=== PATIENT | female | born 1940 | race Caucasian/White ===

== ENCOUNTER 2017-04-26 08:59 | Emergency (ER) | payer MEDICARE ==
--- NOTE | 2017-04-26 09:01 | ER Report ---
History and Physical Time Seen By MD: 09:00 HPI/ROS CC: Right leg pain with loss of bowel HPI: 77-year-old female presents to the emergency Department with loss of bowel 3 days ago. She states that she was incontinent with stool while sitting there. She states that she was unable to control her bowel movements. That has slowly resolved. She states that 2 and half months ago she started having right leg pain basically in the S1 distribution of the bottom of right foot. It is electrical in nature. She states is worse with standing. She has tolerated it over the last couple months but due to recent incontinence of stool. He then came into the emergency department. She is rating the pain in the right leg as 7 -8 out of 10 electrical in nature is periodic. Somewhat better with rest. ROS: 12 point review of systems essentially negative other than what's mentioned in history of present illness. NURSES AND OLD MEDICAL RECORDS: Reviewed PMH: Reviewed SURGICAL HX: Reviewed FAMILY HX: Noncontributory SOCIAL HX: She denies smoking alcohol or illicit drugs. She was a home. VITAL SIGNS: Reviewed CONSTITUTIONAL: 77-year-old female in moderate distress PHYSICAL EXAM: HEENT: Pupils equal round reactive to light and accommodate, EOMI, tympanic membranes pearly white umbo present with good light reflex. Lips dry mucous membranes moist gums nonbleeding uvula midline and rises equally with phonation, oropharynx noninjected, teeth intact. NECK: Neck supple, thyroid not appreciated, anterior and posterior cervical lymphadenopathy not appreciated. Trachea midline and rises equally with phonation. CARDIAC: S1-S2 regular rate rhythm no murmurs rubs or gallops. LUNGS: Lungs clear bilaterally posteriorly in all contreras. Good air movement. ABDOMEN: Abdomen soft, nondistended, bowel sounds active in all 4 quadrants, no bruits noted, no CVA tenderness. RECTAL: Decreased tone of internal and external sphincters. No hemorrhoids noted. No fissures noted. MUSCULOSKELETAL: Strength 5 out of 5 x 4 extremities, no deformities noted. NEUROLOGIC: Patient alert and oriented by 3. Bilateral patellar and Achilles DTRs are 2+. Numbness on the bottom of the right foot. Allergies: Coded Allergies: codeine (Verified Allergy, Mild, WEIRD EXPERIENCE, 04/26/17) tramadol (Verified Allergy, Unknown, 04/26/17) Home Meds Reported Medications Hydrocodone Bit/Acetaminophen (HYDROCODON-ACETAMINOPHEN 5-325) 1 Each Tablet 04/26/17 Ciprofloxacin Hcl (CIPROFLOXACIN HCL) 250 Mg Tablet 04/26/17 Lamotrigine (LAMOTRIGINE) 200 Mg Tablet 04/26/17 Clonazepam (CLONAZEPAM) 1 Mg Tablet 04/26/17 Hydrochlorothiazide (HYDROCHLOROTHIAZIDE) 12.5 Mg Capsule 04/26/17 Lisinopril (LISINOPRIL) 10 Mg Tablet 04/26/17 Constitutional Vital Sign - Last 24 Hours 04/26/17 04/26/17 04/26/17 04/26/17 09:06 09:11 09:30 09:59 Temp 97.9 Pulse 83 91 Resp 16 B/P (MAP) 144/76 144/76 (98) 131/69 (89) Pulse Ox 93 95 O2 Delivery Room Air 04/26/17 10:00 B/P (MAP) 167/78 (107) Medical Decision Making Data Points Result Diagram: 04/26/17 1020 04/26/17 1020 Laboratory Hematology Test 04/26/17 10:20 Red Blood Count 5.68 M/uL (4.17-5.56) Mean Corpuscular Volume 86.8 fL (80.0-96.0) Mean Corpuscular Hemoglobin 28.8 pg (26.0-33.0) Mean Corpuscular Hemoglobin Concent 33.2 g/dL (32.0-36.0) Red Cell Distribution Width 14.0 % (11.5-14.5) Mean Platelet Volume 7.4 fL (7.2-11.1) Neutrophils (%) (Auto) 63.3 % (39.4-72.5) Lymphocytes (%) (Auto) 24.2 % (17.6-49.6) Monocytes (%) (Auto) 8.9 % (4.1-12.4) Eosinophils (%) (Auto) 3.1 % (0.4-6.7) Basophils (%) (Auto) 0.5 % (0.3-1.4) Nucleated RBC Relative Count (auto) 0.0 /100WBC Neutrophils # (Auto) 6.4 K/uL (2.0-7.4) Lymphocytes # (Auto) 2.5 K/uL (1.3-3.6) Monocytes # (Auto) 0.9 K/uL (0.3-1.0) Eosinophils # (Auto) 0.3 K/uL (0.0-0.5) Basophils # (Auto) 0.1 K/uL (0.0-0.1) Nucleated RBC Absolute Count (auto) 0.00 K/uL Peripheral Blood Smear No Y/N Prothrombin Time 12.7 seconds (12.0-14.4) Prothromb Time International Ratio 0.96 Activated Partial Thromboplast Time 23 seconds (23-35) Sodium Level 140 mmol/L (137-145) Potassium Level 3.7 mmol/L (3.5-5.0) Chloride Level 100 mmol/L (98-107) Carbon Dioxide Level 29 mmol/L (22-31) Blood Urea Nitrogen 20 mg/dl (7-18) Creatinine 1.10 mg/dl (0.52-1.04) Glomerular Filtration Rate Calc 48.0 Random Glucose 96 mg/dl (75-110) Calcium Level 9.7 mg/dl (8.4-10.2) Total Bilirubin 0.7 mg/dl (0.2-1.3) Aspartate Amino Transf (AST/SGOT) 22 U/L (0-35) Alanine Aminotransferase (ALT/SGPT) 32 U/L (0-56) Alkaline Phosphatase 75 U/L (0-126) Total Protein 7.4 gm/dl (6.3-8.2) Albumin 4.3 g/dl (3.5-5.0) Chemistry Test 04/26/17 10:20 White Blood Count 10.2 k/uL (4.5-11.0) Red Blood Count 5.68 M/uL (4.17-5.56) Hemoglobin 16.4 g/dL (12.0-16.0) Hematocrit 49.3 % (34.0-47.0) Mean Corpuscular Volume 86.8 fL (80.0-96.0) Mean Corpuscular Hemoglobin 28.8 pg (26.0-33.0) Mean Corpuscular Hemoglobin Concent 33.2 g/dL (32.0-36.0) Red Cell Distribution Width 14.0 % (11.5-14.5) Platelet Count 281 K/uL (150-450) Mean Platelet Volume 7.4 fL (7.2-11.1) Neutrophils (%) (Auto) 63.3 % (39.4-72.5) Lymphocytes (%) (Auto) 24.2 % (17.6-49.6) Monocytes (%) (Auto) 8.9 % (4.1-12.4) Eosinophils (%) (Auto) 3.1 % (0.4-6.7) Basophils (%) (Auto) 0.5 % (0.3-1.4) Nucleated RBC Relative Count (auto) 0.0 /100WBC Neutrophils # (Auto) 6.4 K/uL (2.0-7.4) Lymphocytes # (Auto) 2.5 K/uL (1.3-3.6) Monocytes # (Auto) 0.9 K/uL (0.3-1.0) Eosinophils # (Auto) 0.3 K/uL (0.0-0.5) Basophils # (Auto) 0.1 K/uL (0.0-0.1) Nucleated RBC Absolute Count (auto) 0.00 K/uL Peripheral Blood Smear No Y/N Prothrombin Time 12.7 seconds (12.0-14.4) Prothromb Time International Ratio 0.96 Activated Partial Thromboplast Time 23 seconds (23-35) Glomerular Filtration Rate Calc 48.0 Calcium Level 9.7 mg/dl (8.4-10.2) Total Bilirubin 0.7 mg/dl (0.2-1.3) Aspartate Amino Transf (AST/SGOT) 22 U/L (0-35) Alanine Aminotransferase (ALT/SGPT) 32 U/L (0-56) Alkaline Phosphatase 75 U/L (0-126) Total Protein 7.4 gm/dl (6.3-8.2) Albumin 4.3 g/dl (3.5-5.0) Coagulation Test 04/26/17 10:20 Prothrombin Time 12.7 seconds Prothromb Time International Ratio 0.96 Activated Partial Thromboplast Time 23 seconds EKG/Imaging Imaging MRI of the lumbar spine reveals: IMPRESSION: 1. Severe narrowing of the upper left L5 lateral recess may be affecting the transiting left L5 nerve. 2. Severe narrowing of the upper right S1 lateral recess may be affecting the transiting right S1 nerve. 3. Moderate L4-5 central stenosis and severe bilateral L4-5 foraminal stenosis. The latter could be affecting both exiting L4 nerves. 4. Additional degenerative changes are defined above without additional levels of moderate or high-grade stenotic disease. Report Dictated By: Frank Butts MD at 04/26/2017 11:06 AM ED Course/Re-evaluation ED Course I discussed the case with Dr. Carson, neurosurgeon at [facility]. This was initially previous to the MRI. He is now in surgery. I then called the hospitalist and Dr. Dale, the hospitalist. He accepts patient the patient will be transferred for cauda equina syndrome. Re-evaluation Medical decision making includes cauda equina syndrome, lumbar radiculopathy. Patient does have cauda equina syndrome. Decision to Disposition Date: Apr 26, 2017 Decision to Disposition Time: 12:33 Depart Departure Latest Vital Signs Vital Signs Date Time Temp Pulse Resp B/P (MAP) Pulse Ox O2 Delivery O2 Flow Rate FiO2 04/26/17 10:00 167/78 (107) 04/26/17 09:59 91 95 04/26/17 09:06 97.9 16 Room Air Impression: Primary Impression: Cauda equina syndrome Condition: Condition Unchanged Disposition: XFER TO [facility] Referrals: SUSAN PAGE (PCP) ORIANA MATTSON MD Apr 26, 2017 09:01
[2017-04-26] MEDS ORDERED: LAMO200T45 (09:15)
[2017-04-26] MEDS ORDERED: CLON-303 (09:15)
[2017-04-26] MEDS ORDERED: HYDR-385 (09:15)
[2017-04-26] MEDS ORDERED: LISI-362 (09:15)
[2017-04-26] MEDS ORDERED: CIPR-215 (09:15)
[2017-04-26] MEDS ORDERED: HYDR12.556 (09:15)
[2017-04-26] MEDS ORDERED: LORazepam 2 MG/ML VIAL IVP ONE (10:15)
[2017-04-26 10:35] LABS: PLATELET COUNT, AUTOMATED 281 K/uL (150-450)
[2017-04-26 10:41] LABS: INR 0.96
--- NOTE | 2017-04-26 11:20 | RADIOLOGY IMAGING REPORT ---
[place] [facility] [place] NAME: Betsy Jaquez : 1940 MR: [id number] V: [id number] EXAM DATE: ORDERING PHYSICIAN: ORIANA MATTSON TECHNOLOGIST: Location: [facility] [place] Patient: Betsy Jaquez : 1940 Visit/Account:[id number] Date of Sevice: 04/26/2017 L SPINE W/O CONTRAST Provided history: possible cauda equina syndrome Additional pertinent history: Low back pain and paresthesias in both legs. Loss of bowel control. TECHNIQUE: Multiplanar multisequence lumbar MRI was performed without intravenous contrast. COMPARISON STUDIES: none FINDINGS: Segment numbering: Lumbosacral junction at L5-S1. No transitional segment. Extra-spinal soft tissues: The far left sagittal image demonstrates a water intensity cyst just over 2 cm in size, not included on the axial series, probably arising from the left kidney. Alignment: There is almost 10 mm degenerative anterolisthesis of L4 on L5. Alignment otherwise normal . Osseous signal pattern: There is a mild old anterior wedge deformity at T12 with 35% loss of height. Distal thoracic cord / conus / cauda equina: negative Disc Spaces: Lower T spine: Mild degeneration of the lower 2 thoracic discs with broad-based disc bulges. No herni ation or significant stenosis. L1-L2: Preserved disk height with abnormal low T2 signal indicating degeneration.. Moderate symmet alejandro bulging disk without significant osteophyte formation and without significant central stenosis No significant foraminal stenosis. L2-L3: .Moderate-severe narrowing and degeneration of the disc. Moderate symmetric bulging disk without significant osteophyte formation and without significant central stenosis. Lateralization of end-plate spurs and bilateral facet hypertrophy results in mild narrowing of both f oramina. L3-L4: Preserved disk height with abnormal low T2 signal indicating degeneration. Moderate symmet alejandro bulging disk without significant osteophyte formation and without significant central stenosis. T he canal is lower limits normal at this level. Lateralization of end-plate spurs and bilateral facet hypertrophy results in mild narrowing of the fo ramina. L4-L5: The disk reveals moderate narrowing and degeneration. Grade 1 degenerative anterolisthesis per above. Moderate broad based disc bulge and prominent hypertrophy of the facets and mild hypertro phy ligamentum flavum results in moderate narrowing of the central canal overall. There is also sever e compromise of the upper left lateral recess which might affect the transiting left L5 nerve. Right lateral recess moderately narrowed not to the extent the right lateral recess. Lateralization of end-plate spurs and bilateral facet hypertrophy results in severe narrowing of both foramina. Note is made of an annular fissure at the mid foraminal level on the left. L5-S1: Preserved disk height with abnormal low T2 signal indicating degeneration. Mild symmetric bulging disk without significant osteophyte formation and without significant central stenosis. There is a large thick-walled synovial cyst arising from the right facet joint pointing medially and severely compromising the right lateral recess affecting the transiting right S1 nerve. It does not s ubstantially narrow the central canal overall. There is no significant foraminal stenosis. IMPRESSION: 1. Severe narrowing of the upper left L5 lateral recess may be affecting the transiting left L5 nerve . 2. Severe narrowing of the upper right S1 lateral recess may be affecting the transiting right S1 ner ve. 3. Moderate L4-5 central stenosis and severe bilateral L4-5 foraminal stenosis. The latter could be a ffecting both exiting L4 nerves. 4. Additional degenerative changes are defined above without additional levels of moderate or high-gr sanchez stenotic disease. Report Dictated By: Frank Butts MD at 04/26/2017 11:06 AM Report E-Signed By: Frank Butts MD at 04/26/2017 11:15 AM WSN:[id number]
[2017-04-26 13:00] VITALS: BP 143/71
[2017-04-26] MEDS ORDERED: HYDROmorphone(ER ONLY) 1 MG/ML IVP ONE (13:25)
== END 2017-04-26 13:15 | disposition short-term general hospital (02) ==
LOC: ER 08:59
DX: G83.4 Cauda equina syndrome (principal)
CPT/HCPCS: 72148; 85025; 85610; 85730; 96374; 96375; 99284; J1170; J2060; 82040; 82247; 82310; 82374; 82435; 82565; 82947; 84075; 84132; 84155; 84295; 84450; 84460; 84520

== ENCOUNTER → 2017-04-26 | Outpatient (CLI) | payer MEDICARE ==
[~2017-04-26] MED LIST: CIPR-215; CLON-303; HYDR-385; HYDR12.556; LAMO200T45; LISI-362
== END ==
LOC: AMB 13:14
PROVIDERS: ATTEND Nurse Practitioner
DX: G83.4 Cauda equina syndrome (principal)
CPT/HCPCS: A0425; A0428

== ENCOUNTER → 2017-08-07 | Outpatient (CLI) | payer MEDICARE ==
--- NOTE | 2017-08-07 10:01 | RADIOLOGY IMAGING REPORT ---
[place] [facility] [place] Betsy Jaquez : 1940 MR: [id number] V: [id number] EXAM DATE: ORDERING PHYSICIAN: JOÃO MONTOYA TECHNOLOGIST: Location: [facility] Patient: Betsy Jaquez : 1940 Visit/Account:[id number] Date of Sevice: 08/07/2017 DEXA Scan HISTORY: Senile osteopenia, postmenopausal state. Screening. COMPARISON: 02/17/2013. HIP: Bone mineral density (BMD) measured in the left femoral neck region correlates with a Z-score of +0.5 and a T-score of -1.6 which is compatible with osteopenia as defined by the World Health Organizatio n. The corresponding risk of fracture in the hip is increased 3-4 times compared with a young adult reference population. This value in the total hip has decreased by 1.4 % since the prior study. More than 5% change is considered significant. Bone mineral density (BMD) measured in the left Femoral Neck region measures 0.817 g/cm2. FOREARM: The bone mineral density (BMD) measured in the ULTRADISTAL left forearm, where trabecular bone predom inates, correlates with a Z-score of +0.5 and a T-score of -2.1 which is compatible with osteopenia a s defined by the World Health Organization. The corresponding risk of fracture in the distal forearm is increased 4-6 times compared with a young adult reference population. The bone mineral density (BMD) in the MIDSHAFT of the left forearm, where cortical bone predominates, correlates with a Z-score of -0.2 and a T-score of -2.8 which is compatible with osteoporosis as def ined by the World Health Organization. The corresponding risk of fracture in the midshaft of the fore arm is increased 6-8 times compared with a young adult reference population. This value was not vasu ured previously. IMPRESSION: 1. Left Femoral Neck: Compatible with osteopenia. There has been no significant change in the bone mineral density since the previous exam. 2. Left Femoral Neck: Bone Mineral Density is 0.817 g/cm2 3. Left Forearm: Compatible with osteoporosis. This value was not previously measured. The next DEXA scan of this patient should include the following sites: The left hip and the left fore arm. FRAX? WHO Fracture Risk Assessment Tool link: <http://www.shef.ac.uk/FRAX/tool.jsp?locationValue=9> PLEASE NOTE: 1) The World Health Organization defines low BMD as follows: T-score Normal > -1 Osteopenia < -1 and > -2.5 Osteoporosis < -2.5 without fractures Established osteoporosis < -2.5 with fractures 2) In general, you may wish to consider: Diagnosis Treatment Follow-up DEXA Normal BMD Prevention 2-3 years Osteopenia Prevention/therapy 1-2 years Osteoporosis Therapy Yearly 3) Fracture risk estimated from the T-score is more accurate for vertebral fractures (often spontane ous) than for hip fractures. Report Dictated By: Radha Keller MD at 08/07/2017 9:55 AM Report E-Signed By: Radha Keller MD at 08/07/2017 9:57 AM WSN:[id number]
--- NOTE | 2017-08-09 14:00 | RADIOLOGY IMAGING REPORT ---
FACILITY: [facility] - [place] PATIENT NAME: AUNG EAGLE : [id number] MR: [id number] V: [id number] EXAM DATE: ORDERING PHYSICIAN: JOÃO MONTOYA TECHNOLOGIST: Krystle Zhang PROCEDURE:BILATERAL DIGITAL SCREENING MAMMOGRAM WITH CAD ASSISTED INTERPRETATION & 3D TOMOSYNTHESIS COMPARISON:Prior mammograms 03/02/14, 02/17/13, 11/02/11, 08/12/07, 07/18/05. INDICATIONS:screening FINDINGS: Moderately dense fibroglandular tissue is seen throughout the breasts. The parenchymal pattern has remained stable allowing for difference in mammographic technique & patient positioning. There is no evidence of malignant appearing mass, malignant appearing calcifications or other secondary sign of malignancy in either breast. DIAGNOSTIC CATEGORY 1--NEGATIVE. RECOMMENDATIONS: ROUTINE MAMMOGRAM AND CLINICAL EVALUATION. IMPRESSION: BIRADS 1: Negative No significant abnormality is seen. Dictated by: Nilda Trevino M.D. on 08/08/2017 at 16:41 Transcribed by: ALONA on 08/09/2017 at 8:11 Approved by: Nilda Trevino M.D. on 08/09/2017 at 13:59 [facility]
== END ==
LOC: MAMO 00:48
PROVIDERS: ATTEND Nurse Practitioner Family
DX: Z13.820 Encounter for screening for osteoporosis (principal); Z12.31 Encounter for screening mammogram for malignant neoplasm of breast; M85.80 Other specified disorders of bone density and structure, unspecified site; M81.0 Age-related osteoporosis without current pathological fracture
CPT/HCPCS: 77063; 77067; 77080

== ENCOUNTER 2017-10-20 08:10 | Emergency (ER) | payer MEDICARE ==
[~2017-10-20 08:10] MED LIST changes: -CIPR-344 PO
--- NOTE | 2017-10-20 08:12 | ER Report ---
History and Physical Time Seen By MD: 08:11 HPI/ROS CHIEF COMPLAINT: Dizziness, near syncope HISTORY OF PRESENT ILLNESS: Patient is a 69-year-old female here with acute onset of dizziness, near syncope which started approximately 7 AM this morning. Patient reports that she was watering her garden and doing her normal morning activities when she became acutely dizzy and weak forcing her to limb floor due to concern for falling. She denies prior history of vertigo or new medications. She does report that she feels slightly dehydrated. She notes that the room is not spinning on her however she feels out of balance and out of focus. Patient denies recent trauma, anticoagulant use. She is otherwise a healthy female who denies fevers, chills, headache, chest pain, shortness of breath, vomiting, abdominal pain. She is afebrile and hemodynamically stable at time of evaluation. REVIEW OF SYSTEMS: Constitutional: No fever, no chills. Eyes: No dischargw, + blurry vision ENT: No sore throat. Cardiovascular: No chest pain, no palpitations. Respiratory: No cough, no shortness of breath. Gastrointestinal: No abdominal pain, no vomiting, + nausea Genitourinary: No hematuria. Musculoskeletal: No back pain. Skin: No rashes. Neurological: No headache, + dizziness Allergies: Coded Allergies: codeine (Verified Allergy, Mild, WEIRD EXPERIENCE, 10/20/17) tramadol (Verified Allergy, Unknown, 10/20/17) Home Meds Active Scripts Ciprofloxacin Hcl (CIPRO) 500 Mg Tablet, 500 MG PO BID for 7 Days, #14 TAB Prov:DANIELA RETANA DO 10/20/17 Reported Medications Hydrocodone Bit/Acetaminophen (HYDROCODON-ACETAMINOPHEN 5-325) 1 Each Tablet 04/26/17 Ciprofloxacin Hcl (CIPROFLOXACIN HCL) 250 Mg Tablet 04/26/17 Lamotrigine (LAMOTRIGINE) 200 Mg Tablet 04/26/17 Clonazepam (CLONAZEPAM) 1 Mg Tablet 04/26/17 Hydrochlorothiazide (HYDROCHLOROTHIAZIDE) 12.5 Mg Capsule 04/26/17 Lisinopril (LISINOPRIL) 10 Mg Tablet 04/26/17 Hx Alcohol Use: Yes (ONE MARTINI A DAY) Constitutional Vital Sign - Last 24 Hours 6/23/18 6/23/18 6/23/18 6/23/18 08:11 08:30 09:00 11:46 Temp 97.6 Pulse 85 77 70 Resp 18 19 B/P (MAP) 162/88 155/94 (114) 152/81 (104) 140/72 (94) Pulse Ox 96 95 O2 Delivery Room Air 10/20/17 10/20/17 10/20/17 10/20/17 12:00 12:30 12:31 12:32 Pulse 67 66 67 70 B/P (MAP) 122/71 (88) Pulse Ox 96 94 95 94 Intake and Output 10/20/17 10/20/17 10/21/17 15:00 23:00 07:00 Intake Total 1000 ml Balance 1000 ml Physical Exam General Appearance: The patient is alert, has no immediate need for airway protection and no signs of toxicity. + uncomfortable appearing Eyes: Pupils equal and round no pallor or injection, + subtle left beating horizontal nystagmus, (no vertical or rotary) ENT, Mouth: Mucous membranes are moist. Respiratory: There are no retractions, lungs are clear to auscultation. Cardiovascular: Regular rate and rhythm. Gastrointestinal: Abdomen is soft and non tender, no masses, bowel sounds normal. Neurological: + unsteady on feet, no pronator drift, facial droop, extremity weakness or neuro deficits Skin: Warm and dry, no rashes. Musculoskeletal: Neck is supple non tender. Extremities are nontender, nonswollen and have full range of motion. DIFFERENTIAL DIAGNOSIS: After history and physical exam differential diagnosis was considered for dizziness including but not limited to peripheral and central causes of vertigo, orthostatic causes including dehydration, and blood loss. Medical Decision Making Data Points Result Diagram: 10/20/17 0813 10/20/17 0813 Laboratory Hematology Test 10/20/17 08:13 10/20/17 08:56 Red Blood Count 5.53 M/uL (4.17-5.56) Mean Corpuscular Volume 85.3 fL (80.0-96.0) Mean Corpuscular Hemoglobin 28.3 pg (26.0-33.0) Mean Corpuscular Hemoglobin Concent 33.2 g/dL (32.0-36.0) Red Cell Distribution Width 15.2 % (11.5-14.5) Mean Platelet Volume 8.0 fL (7.2-11.1) Neutrophils (%) (Auto) 43.2 % (39.4-72.5) Lymphocytes (%) (Auto) 39.3 % (17.6-49.6) Monocytes (%) (Auto) 13.3 % (4.1-12.4) Eosinophils (%) (Auto) 4.0 % (0.4-6.7) Basophils (%) (Auto) 0.2 % (0.3-1.4) Nucleated RBC Relative Count (auto) 0.2 /100WBC Neutrophils # (Auto) 2.7 K/uL (2.0-7.4) Lymphocytes # (Auto) 2.5 K/uL (1.3-3.6) Monocytes # (Auto) 0.8 K/uL (0.3-1.0) Eosinophils # (Auto) 0.3 K/uL (0.0-0.5) Basophils # (Auto) 0.0 K/uL (0.0-0.1) Nucleated RBC Absolute Count (auto) 0.01 K/uL Peripheral Blood Smear No Y/N Sodium Level 139 mmol/L (137-145) Potassium Level 4.2 mmol/L (3.5-5.0) Chloride Level 102 mmol/L (98-107) Carbon Dioxide Level 24 mmol/L (22-31) Blood Urea Nitrogen 19 mg/dl (7-18) Creatinine 1.00 mg/dl (0.52-1.04) Glomerular Filtration Rate Calc 53.6 Random Glucose 99 mg/dl (75-110) Calcium Level 9.7 mg/dl (8.4-10.2) Total Bilirubin 0.8 mg/dl (0.2-1.3) Aspartate Amino Transf (AST/SGOT) 30 U/L (0-35) Alanine Aminotransferase (ALT/SGPT) 30 U/L (0-56) Alkaline Phosphatase 70 U/L (0-126) Total Protein 7.0 g/dl (6.3-8.2) Albumin 4.2 g/dl (3.5-5.0) Urine Color Yellow Urine Clarity Cloudy Urine pH 7.0 pH (4.8-9.5) Urine Specific [place] 1.011 Urine Protein Negative mg/dL (NEGATIVE) Urine Glucose (UA) Negative mg/dL (NEGATIVE) Urine Ketones Negative mg/dL (NEGATIVE) Urine Blood Small (NEGATIVE) Urine Nitrite Positive (NEGATIVE) Urine Bilirubin Negative (NEGATIVE) Urine Urobilinogen Negative mg/dL (0.2-1.9) Urine Leukocyte Esterase Large (NEGATIVE) Urine RBC 13 /HPF (0-2/HPF) Urine WBC 240 /HPF (0-5/HPF) Urine WBC Clumps Many /HPF Urine Squamous Epithelial Cells Many /LPF (</=FEW) Urine Bacteria Moderate /HPF (NONE-FEW) Urine Mucus None /HPF (NONE-FEW) Chemistry Test 10/20/17 08:13 10/20/17 08:56 White Blood Count 6.3 k/uL (4.5-11.0) Red Blood Count 5.53 M/uL (4.17-5.56) Hemoglobin 15.6 g/dL (12.0-16.0) Hematocrit 47.2 % (34.0-47.0) Mean Corpuscular Volume 85.3 fL (80.0-96.0) Mean Corpuscular Hemoglobin 28.3 pg (26.0-33.0) Mean Corpuscular Hemoglobin Concent 33.2 g/dL (32.0-36.0) Red Cell Distribution Width 15.2 % (11.5-14.5) Platelet Count 304 K/uL (150-450) Mean Platelet Volume 8.0 fL (7.2-11.1) Neutrophils (%) (Auto) 43.2 % (39.4-72.5) Lymphocytes (%) (Auto) 39.3 % (17.6-49.6) Monocytes (%) (Auto) 13.3 % (4.1-12.4) Eosinophils (%) (Auto) 4.0 % (0.4-6.7) Basophils (%) (Auto) 0.2 % (0.3-1.4) Nucleated RBC Relative Count (auto) 0.2 /100WBC Neutrophils # (Auto) 2.7 K/uL (2.0-7.4) Lymphocytes # (Auto) 2.5 K/uL (1.3-3.6) Monocytes # (Auto) 0.8 K/uL (0.3-1.0) Eosinophils # (Auto) 0.3 K/uL (0.0-0.5) Basophils # (Auto) 0.0 K/uL (0.0-0.1) Nucleated RBC Absolute Count (auto) 0.01 K/uL Peripheral Blood Smear No Y/N Glomerular Filtration Rate Calc 53.6 Calcium Level 9.7 mg/dl (8.4-10.2) Total Bilirubin 0.8 mg/dl (0.2-1.3) Aspartate Amino Transf (AST/SGOT) 30 U/L (0-35) Alanine Aminotransferase (ALT/SGPT) 30 U/L (0-56) Alkaline Phosphatase 70 U/L (0-126) Total Protein 7.0 g/dl (6.3-8.2) Albumin 4.2 g/dl (3.5-5.0) Urine Color Yellow Urine Clarity Cloudy Urine pH 7.0 pH (4.8-9.5) Urine Specific [place] 1.011 Urine Protein Negative mg/dL (NEGATIVE) Urine Glucose (UA) Negative mg/dL (NEGATIVE) Urine Ketones Negative mg/dL (NEGATIVE) Urine Blood Small (NEGATIVE) Urine Nitrite Positive (NEGATIVE) Urine Bilirubin Negative (NEGATIVE) Urine Urobilinogen Negative mg/dL (0.2-1.9) Urine Leukocyte Esterase Large (NEGATIVE) Urine RBC 13 /HPF (0-2/HPF) Urine WBC 240 /HPF (0-5/HPF) Urine WBC Clumps Many /HPF Urine Squamous Epithelial Cells Many /LPF (</=FEW) Urine Bacteria Moderate /HPF (NONE-FEW) Urine Mucus None /HPF (NONE-FEW) Urinalysis Test 10/20/17 08:56 Urine Color Yellow Urine Clarity Cloudy Urine pH 7.0 pH (4.8-9.5) Urine Specific [place] 1.011 Urine Protein Negative mg/dL (NEGATIVE) Urine Glucose (UA) Negative mg/dL (NEGATIVE) Urine Ketones Negative mg/dL (NEGATIVE) Urine Blood Small (NEGATIVE) Urine Nitrite Positive (NEGATIVE) Urine Bilirubin Negative (NEGATIVE) Urine Urobilinogen Negative mg/dL (0.2-1.9) Urine Leukocyte Esterase Large (NEGATIVE) Urine RBC 13 /HPF (0-2/HPF) Urine WBC 240 /HPF (0-5/HPF) Urine WBC Clumps Many /HPF Urine Squamous Epithelial Cells Many /LPF (</=FEW) Urine Bacteria Moderate /HPF (NONE-FEW) Urine Mucus None /HPF (NONE-FEW) EKG/Imaging EKG Interpretation 12 lead EKG: Normal sinus rhythm rate 75, no ischemic changes or arrhythmias. Rhythm: normal sinus rhythm [place]: normal QRS: normal ST segments: normal Monitor Interpretation: Normal Sinus Rhythm Imaging BRAIN W W/O CONTRAST EXAMINATION: MRI brain without IV contrast HISTORY: Dizziness COMPARISON STUDIES: None TECHNIQUE: Multiplanar, multisequence brain MRI was performed with/ without IV contrast. 14 cc of MultiHance FINDINGS: Ventricles/sulci/fissures: Negative Masses/hemorrhage/midline shift: Negative White matter: Scattered punctate and small roundish white matter lesions measuring up to 4 mm in greatest dimension within the deep white matter tracts mainly of the frontal lobes in a symmetric fashion bilaterally. Cortical ruvalcaba matter: Negative Ruvalcaba-white differentiation: Negative Extra-axial spaces: Negative Calvarium: Negative Diffusion: No diffusion restriction. Specifically, there is no cerebellar infarction noted. Enhancement: Postcontrast enhanced scans demonstrates no abnormal enhancing lesions. Vascular structures: Normal flow voids. Sagittal midline structures: Negative Paranasal sinuses/mastoid air cells: Negative Orbits: Negative Visualized upper neck: Negative IMPRESSION: 1. Negative MRI of the head. Specifically no cerebellar ischemic event noted. 2. White matter lesions scattered in both cerebral hemispheres likely small vessel ischemic in nature. CHEST PA AND LAT Additional pertinent History: Weakness syncope COMPARISON STUDIES: none FINDINGS: Support lines and catheters: None Lungs and Pleura: Lung contreras well expanded with no infiltrates or consolidations. No parenchymal mass lesions are seen. There are no effusions Heart and vasculature: Negative. Gisel and Mediastinum: Negative. Bones and Chest wall: Negative. Upper Abdomen: Negative. IMPRESSION: 1. 1. Negative chest ED Course/Re-evaluation ED Course Patient is a 77-year-old female here with complaints of acute onset of dizziness and near syncope and vertiginous symptoms which started this morning at approximately 7 AM when the patient was completing her morning activities. Patient denies prior history of vertigo or vertiginous symptoms. He does note having unsteady gait, weakness, "fuzzy" sensation. Patient denies headache or the sensation of the room spinning on her. Patient reports that the symptoms are constant and unabating. On initial physical exam, the patient does have a subtle left beating horizontal nystagmus without any signs of vertical or rotary nystagmus. Patient does not have facial droop, weakness on shoulder shrug , pronator drift, extremity weakness or sensory deficits. She does report having peripheral double vision on extraocular muscle confrontation. EKG showed no signs of arrhythmias or ischemic findings. I stood the patient up observed her and she was notably unsteady on her feet especially after having her close her eyes. Per EMS report, bedside glucose was 83. Denies any history of trauma or being on blood thinners for acute onset of headache. She is eating and drinking normally and denied chest pain, shortness breath, palpitations, abdominal pain. She did complain of nausea without vomiting. Patient is afebrile at time of evaluation, hemodynamically stable. Since this is a new symptom for this patient and she has no history of vertiginous symptoms, decision was made to rule out CVA with an MRI of the brain, evaluate for electrolyte abnormalities, arrhythmias. . Chest x-ray showed no acute findings. UA remarkable for + Nitrate, + Leuk esterase, culture added. Ceftriaxone was administered. Patient was given Valium for vertiginous symptoms as well as a liter bolus of fluids. Though the patient was found to have cystitis, due to her abnormal neurologic findings and symptoms I deemed prudent to complete the workup with MRI imaging to rule out cerebellar stroke. MRI showed no acute ischemic stroke. Patient was placed on cipro x 7 days for coverage and was well appearing prior to discharge home. She agrees to return with any worsening of symptoms and to follow up with her PCP in the next week. Decision to Disposition Date: Oct 20, 2017 Decision to Disposition Time: 12:40 Depart Departure Latest Vital Signs Vital Signs Date Time Temp Pulse Resp B/P (MAP) Pulse Ox O2 Delivery O2 Flow Rate FiO2 10/20/17 12:32 70 122/71 (88) 94 10/20/17 08:30 19 10/20/17 08:11 97.6 Room Air Impression: Primary Impression: UTI (urinary tract infection) Additional Impressions: Weakness Dizziness Condition: Improved Disposition: HOME OR SELF-CARE Referrals: JOÃO MONTOYA (PCP) New Scripts Ciprofloxacin Hcl (CIPRO) 500 Mg Tablet 500 MG PO BID for 7 Days, #14 TAB Prov: DANIELA RETANA DO 10/20/17 Patient Instructions: Dizziness (ED), Urinary Tract Infection in Women (ED) Additional Instructions: Please take one tablet of Ciprofloxacillin twice daily for 7 days. Please drink plenty of water. Please return if you develop worsening weakness, dizziness, fevers, abdominal pain, difficulty urinating. Problem Qualifiers DANIELA RETANA DO Oct 20, 2017 08:12
[2017-10-20] MEDS ORDERED: NS(*) 0.9% 1000 ML BAG 1,000 ML IV ONE (08:26)
[2017-10-20] MEDS ORDERED: DIAZEPAM 50 MG/10 ML MDV IVP ONE (08:30)
[2017-10-20 08:48] LABS: PLATELET COUNT, AUTOMATED 304 K/uL (150-450)
--- NOTE | 2017-10-20 09:07 | RADIOLOGY IMAGING REPORT ---
FACILITY: [facility] - [place] PATIENT NAME: Betsy Jaquez : 1940 MR: [id number] V: [id number] EXAM DATE: ORDERING PHYSICIAN: DANIELA RETANA TECHNOLOGIST: Location: [facility] Patient: Betsy Jaquez : 1940 Visit/Account:[id number] Date of Sevice: 10/20/2017 CHEST PA AND LAT Additional pertinent History: Weakness syncope COMPARISON STUDIES: none FINDINGS: Support lines and catheters: None Lungs and Pleura: Lung contreras well expanded with no infiltrates or consolidations. No parenchymal ma ss lesions are seen. There are no effusions Heart and vasculature: Negative. Gisel and Mediastinum: Negative. Bones and Chest wall: Negative. Upper Abdomen: Negative. IMPRESSION: 1. 1. Negative chest Report Dictated By: Bear Veloz MD at 10/20/2017 9:03 AM Report E-Signed By: Bear Veloz MD at 10/20/2017 9:04 AM WSN:[id number]
[2017-10-20] MEDS ORDERED: cefTRIAXone 1 GM VIAL IVP ONE (09:25)
[2017-10-20] MEDS ORDERED: GADOBENATE 529MG/1ML 15ML VIAL IVP ONE (09:29)
--- NOTE | 2017-10-20 10:17 | RADIOLOGY IMAGING REPORT ---
FACILITY: [facility] PATIENT NAME: Betsy Jaquez : 1940 MR: [id number] V: [id number] EXAM DATE: ORDERING PHYSICIAN: DANIELA RETANA TECHNOLOGIST: Location: [facility] - [place] Patient: Betsy Jaquez : 1940 Visit/Account:[id number] Date of Sevice: 10/20/2017 BRAIN W W/O CONTRAST EXAMINATION: MRI brain without IV contrast HISTORY: Dizziness COMPARISON STUDIES: None TECHNIQUE: Multiplanar, multisequence brain MRI was performed with/ without IV contrast. 14 cc of Mul tiHance FINDINGS: Ventricles/sulci/fissures: Negative Masses/hemorrhage/midline shift: Negative White matter: Scattered punctate and small roundish white matter lesions measuring up to 4 mm in grea test dimension within the deep white matter tracts mainly of the frontal lobes in a symmetric fashion bilaterally. Cortical ruvalcaba matter: Negative Ruvalcaba-white differentiation: Negative Extra-axial spaces: Negative Calvarium: Negative Diffusion: No diffusion restriction. Specifically, there is no cerebellar infarction noted. Enhancement: Postcontrast enhanced scans demonstrates no abnormal enhancing lesions. Vascular structures: Normal flow voids. Sagittal midline structures: Negative Paranasal sinuses/mastoid air cells: Negative Orbits: Negative Visualized upper neck: Negative IMPRESSION: 1. Negative MRI of the head. Specifically no cerebellar ischemic event noted. 2. White matter lesions scattered in both cerebral hemispheres likely small vessel ischemic in nature . Report Dictated By: Bear Veloz MD at 10/20/2017 10:05 AM Report E-Signed By: Bear Veloz MD at 10/20/2017 10:14 AM WSN:[id number]
[2017-10-20] MEDS ORDERED: MECLIZINE HCL 25 MG TAB PO ONE (11:35)
[2017-10-20] MEDS ORDERED: CIPR-344 PO (12:30)
[2017-10-20 12:32] VITALS: BP 122/71
--- NOTE | 2017-10-20 14:22 | EKG ---
FACILITY: [facility] - [place] PATIENT NAME: AUNG EAGLE : [id number] MR: [id number] V: [id number] EXAM DATE: ORDERING PHYSICIAN: DANIELA RETANA TECHNOLOGIST: JIGNESH [place] Reason : Blood Pressure : / mmHG Vent. Rate : 075 BPM Atrial Rate : 075 BPM P-R Int : 162 ms QRS Dur : 086 ms QT Int : 398 ms P-R-T Axes : 057 014 044 degrees QTc Int : 444 ms Sinus rhythm Possible biatrial enlargement No acute appearing findings No previous ECGs available Confirmed by MAGNO STERN ([id number]) on 10/21/2017 5:33:31 AM Referred By: MAZIN Confirmed By:MAGNO TSERN
== END 2017-10-20 12:40 | disposition home or self-care (01) ==
LOC: ER 08:14
DX: N39.0 Urinary tract infection, site not specified (principal); B96.20 Unspecified Escherichia coli [E. coli] as the cause of diseases classified elsewhere; R53.1 Weakness; R42 Dizziness and giddiness
CPT/HCPCS: 70553; 71046; 81001; 85025; 87077; 87088; 87186; 93005; 96361; 96374; 96375; 99285; A9577; J0696; J3360; J7030; J8597; 82040; 82247; 82310; 82374; 82435; 82565; 82947; 84075; 84132; 84155; 84295; 84450; 84460; 84520

== ENCOUNTER → 2017-10-20 | Outpatient (CLI) | payer MEDICARE ==
[~2017-10-20] MED LIST changes: +CIPR-344 PO
== END ==
LOC: AMB 07:45
PROVIDERS: ATTEND Nurse Practitioner
DX: R53.1 Weakness (principal); R42 Dizziness and giddiness; H53.8 Other visual disturbances
CPT/HCPCS: A0425; A0427

== ENCOUNTER 2018-01-02 14:00 | Emergency (ER) | payer MEDICARE ==
[~2018-01-02 14:00] MED LIST changes: +CIPR-344 PO; -CLON-303; +CLON-304
[2018-01-02] MEDS ORDERED: AMLO2.5T74 (14:12)
--- NOTE | 2018-01-02 14:19 | ER Report ---
History and Physical Time Seen By MD: 14:17 Hx. of Stated Complaint: PT REPORTS BOWEL AND BLADDER INCONTINENCE HPI/ROS CHIEF COMPLAINT: bowel and bladder incontinence HISTORY OF PRESENT ILLNESS: Pt states back in April she had L4-L5 fusion in [place] for herniated disc that was causing her severe pain. Pt ws doing okay until recently her pain was returning and had some radiation down both legs. pt states pain is not as severe as previous. Pt was going to follow up for a second opinon at Dr. Bubba aiken in [place]. Pt however today stasrted with bowel incontinence. Had 10 episodes this am of soft stool that she could not control. PT states she also has been having some bladder incontinence but states "that is not too unusual at my age". No abd pain. pt called her pcp and was told to go to ed. Pt was on recent abx for uti at the end of October and November. pts abx had stopped 1-2 weeks ago. no fevers. no weakness. REVIEW OF SYSTEMS: Constitutional: No fever, no chills. Eyes: No discharge. ENT: No sore throat. Cardiovascular: No chest pain, no palpitations. Respiratory: No cough, no shortness of breath. Gastrointestinal: No abdominal pain, no vomiting, + diarrhea with incontinence Genitourinary: No hematuria, no dysuria, + incontinence Musculoskeletal: + back pain. Skin: No rashes. Neurological: No headache. Allergies: Coded Allergies: codeine (Verified Allergy, Mild, WEIRD EXPERIENCE, 01/02/18) tramadol (Verified Allergy, Unknown, 01/02/18) Home Meds Active Scripts Ciprofloxacin Hcl (CIPRO) 500 Mg Tablet, 500 MG PO BID for 7 Days, #14 TAB Prov:DANIELA RETANA DO 10/20/17 Reported Medications Amlodipine Besylate (AMLODIPINE BESYLATE) 2.5 Mg Tablet, QDAY 01/02/18 Ciprofloxacin Hcl (CIPROFLOXACIN HCL) 250 Mg Tablet 04/26/17 Lamotrigine (LAMOTRIGINE) 200 Mg Tablet 04/26/17 Clonazepam (CLONAZEPAM) 1 Mg Tablet 04/26/17 Hydrochlorothiazide (HYDROCHLOROTHIAZIDE) 12.5 Mg Capsule 04/26/17 Lisinopril (LISINOPRIL) 10 Mg Tablet 04/26/17 Discontinued Reported Medications Hydrocodone Bit/Acetaminophen (HYDROCODON-ACETAMINOPHEN 5-325) 1 Each Tablet 04/26/17 Past Medical/Surgical History Pmhx: uti, herniated disc Pshx: lumbar fusion Reviewed Nurses Notes: Yes Old Medical Records Reviewed: Yes Hx Alcohol Use: Yes (ONE MARTINI A DAY) Constitutional Vital Sign - Last 24 Hours 01/02/18 14:05 Temp 97.9 Pulse 85 Resp 18 B/P (MAP) 182/84 Pulse Ox 94 O2 Delivery Room Air Physical Exam General Appearance: The patient is alert, has no immediate need for airway protection and no signs of toxicity. Eyes: Pupils equal and round no pallor or injection ENT: no pharyngeal erythema or exudates, Mucous membranes are moist, TM are nl b/l Respiratory: There are no retractions, lungs are clear to auscultation. Cardiovascular: Regular rate and rhythm. pulses are equal and symmetrical Gastrointestinal: Abdomen is soft and non tender, no masses, bowel sounds normal, no guarding, no rigidity or rebound Rectal: + sensation intact, Pt has some rectal tone i Neurological: Cranial nerves II-XII grossly intact, no sensory or motor loss Skin: Warm and dry, no rashes. Musculoskeletal: Neck is supple non tender, no vertebral tenderness Extremities are nontender, non swollen and have full range of motion. DIFFERENTIAL DIAGNOSIS: After history and physical exam differential diagnosis was considered for herniated disc, cauda equina syndrome, c.d-ff, uti Medical Decision Making Data Points Result Diagram: 01/02/18 1450 01/02/18 1450 Laboratory Hematology Test 01/02/18 14:06 01/02/18 14:50 Urine Color Colorless Urine Clarity Clear Urine pH 7.0 pH (4.8-9.5) Urine Specific [place] 1.002 Urine Protein Negative mg/dL (NEGATIVE) Urine Glucose (UA) Negative mg/dL (NEGATIVE) Urine Ketones Negative mg/dL (NEGATIVE) Urine Blood Negative (NEGATIVE) Urine Nitrite Negative (NEGATIVE) Urine Bilirubin Negative (NEGATIVE) Urine Urobilinogen Negative mg/dL (0.2-1.9) Urine Leukocyte Esterase Negative (NEGATIVE) Urine RBC None /HPF (0-2/HPF) Urine WBC None /HPF (0-5/HPF) Urine Squamous Epithelial Cells Moderate /LPF (</=FEW) Urine Bacteria Negative /HPF (NONE-FEW) Urine Mucus None /HPF (NONE-FEW) Red Blood Count 5.46 M/uL (4.17-5.56) Mean Corpuscular Volume 86.7 fL (80.0-96.0) Mean Corpuscular Hemoglobin 29.4 pg (26.0-33.0) Mean Corpuscular Hemoglobin Concent 33.9 g/dL (32.0-36.0) Red Cell Distribution Width 14.0 % (11.5-14.5) Mean Platelet Volume 7.4 fL (7.2-11.1) Neutrophils (%) (Auto) 53.8 % (39.4-72.5) Lymphocytes (%) (Auto) 30.9 % (17.6-49.6) Monocytes (%) (Auto) 10.7 % (4.1-12.4) Eosinophils (%) (Auto) 4.1 % (0.4-6.7) Basophils (%) (Auto) 0.5 % (0.3-1.4) Nucleated RBC Relative Count (auto) 0.0 /100WBC Neutrophils # (Auto) 4.0 K/uL (2.0-7.4) Lymphocytes # (Auto) 2.3 K/uL (1.3-3.6) Monocytes # (Auto) 0.8 K/uL (0.3-1.0) Eosinophils # (Auto) 0.3 K/uL (0.0-0.5) Basophils # (Auto) 0.0 K/uL (0.0-0.1) Nucleated RBC Absolute Count (auto) 0.00 K/uL Sodium Level 141 mmol/L (137-145) Potassium Level 4.1 mmol/L (3.5-5.0) Chloride Level 105 mmol/L (98-107) Carbon Dioxide Level 27 mmol/L (22-31) Blood Urea Nitrogen 16 mg/dl (7-18) Creatinine 1.00 mg/dl (0.52-1.04) Glomerular Filtration Rate Calc 53.6 Random Glucose 89 mg/dl (75-110) Calcium Level 9.6 mg/dl (8.4-10.2) Total Bilirubin 0.3 mg/dl (0.2-1.3) Aspartate Amino Transf (AST/SGOT) 19 U/L (0-35) Alanine Aminotransferase (ALT/SGPT) 26 U/L (0-56) Alkaline Phosphatase 59 U/L (0-126) Total Protein 7.1 g/dl (6.3-8.2) Albumin 4.5 g/dl (3.5-5.0) Clostridium Difficile Toxin A & B Negative Clostridium difficile Antigen Negative Chemistry Test 01/02/18 14:06 01/02/18 14:50 Urine Color Colorless Urine Clarity Clear Urine pH 7.0 pH (4.8-9.5) Urine Specific [place] 1.002 Urine Protein Negative mg/dL (NEGATIVE) Urine Glucose (UA) Negative mg/dL (NEGATIVE) Urine Ketones Negative mg/dL (NEGATIVE) Urine Blood Negative (NEGATIVE) Urine Nitrite Negative (NEGATIVE) Urine Bilirubin Negative (NEGATIVE) Urine Urobilinogen Negative mg/dL (0.2-1.9) Urine Leukocyte Esterase Negative (NEGATIVE) Urine RBC None /HPF (0-2/HPF) Urine WBC None /HPF (0-5/HPF) Urine Squamous Epithelial Cells Moderate /LPF (</=FEW) Urine Bacteria Negative /HPF (NONE-FEW) Urine Mucus None /HPF (NONE-FEW) White Blood Count 7.4 k/uL (4.5-11.0) Red Blood Count 5.46 M/uL (4.17-5.56) Hemoglobin 16.0 g/dL (12.0-16.0) Hematocrit 47.4 % (34.0-47.0) Mean Corpuscular Volume 86.7 fL (80.0-96.0) Mean Corpuscular Hemoglobin 29.4 pg (26.0-33.0) Mean Corpuscular Hemoglobin Concent 33.9 g/dL (32.0-36.0) Red Cell Distribution Width 14.0 % (11.5-14.5) Platelet Count 284 K/uL (150-450) Mean Platelet Volume 7.4 fL (7.2-11.1) Neutrophils (%) (Auto) 53.8 % (39.4-72.5) Lymphocytes (%) (Auto) 30.9 % (17.6-49.6) Monocytes (%) (Auto) 10.7 % (4.1-12.4) Eosinophils (%) (Auto) 4.1 % (0.4-6.7) Basophils (%) (Auto) 0.5 % (0.3-1.4) Nucleated RBC Relative Count (auto) 0.0 /100WBC Neutrophils # (Auto) 4.0 K/uL (2.0-7.4) Lymphocytes # (Auto) 2.3 K/uL (1.3-3.6) Monocytes # (Auto) 0.8 K/uL (0.3-1.0) Eosinophils # (Auto) 0.3 K/uL (0.0-0.5) Basophils # (Auto) 0.0 K/uL (0.0-0.1) Nucleated RBC Absolute Count (auto) 0.00 K/uL Glomerular Filtration Rate Calc 53.6 Calcium Level 9.6 mg/dl (8.4-10.2) Total Bilirubin 0.3 mg/dl (0.2-1.3) Aspartate Amino Transf (AST/SGOT) 19 U/L (0-35) Alanine Aminotransferase (ALT/SGPT) 26 U/L (0-56) Alkaline Phosphatase 59 U/L (0-126) Total Protein 7.1 g/dl (6.3-8.2) Albumin 4.5 g/dl (3.5-5.0) Clostridium Difficile Toxin A & B Negative Clostridium difficile Antigen Negative Urinalysis Test 01/02/18 14:06 Urine Color Colorless Urine Clarity Clear Urine pH 7.0 pH (4.8-9.5) Urine Specific [place] 1.002 Urine Protein Negative mg/dL (NEGATIVE) Urine Glucose (UA) Negative mg/dL (NEGATIVE) Urine Ketones Negative mg/dL (NEGATIVE) Urine Blood Negative (NEGATIVE) Urine Nitrite Negative (NEGATIVE) Urine Bilirubin Negative (NEGATIVE) Urine Urobilinogen Negative mg/dL (0.2-1.9) Urine Leukocyte Esterase Negative (NEGATIVE) Urine RBC None /HPF (0-2/HPF) Urine WBC None /HPF (0-5/HPF) Urine Squamous Epithelial Cells Moderate /LPF (</=FEW) Urine Bacteria Negative /HPF (NONE-FEW) Urine Mucus None /HPF (NONE-FEW) ED Course/Re-evaluation ED Course check stool, urine and MRI for cauda equina MRI is back. no cauda equina. See report for full details. 01/02/2018 4:17:[address] Olson and reviewed MRI, labs and pts history. Dr. Olson states she will follow up with the patient for her diarrhea but asked if I can refer her to Dr. mac for her back. Will attempt to call Dr. Mac office to arrange an appt. PT rojas not had any urinary or bowel incontinence in ed. 01/02/2018 4:28:48 pm Attempted to speak with Dr.harris Gissel scheduling nurse but she had left for the day. Pt states she can call to schedule. Decision to Disposition Date: Jan 02, 2018 Decision to Disposition Time: 16:29 Depart Departure Latest Vital Signs Vital Signs Date Time Temp Pulse Resp B/P (MAP) Pulse Ox O2 Delivery O2 Flow Rate FiO2 01/02/18 14:05 97.9 85 18 182/84 94 Room Air Impression: Primary Impression: Back pain Additional Impression: Diarrhea Condition: Improved Disposition: HOME OR SELF-CARE Referrals: JOÃO OLSON (PCP) MINDI MAC MD Patient Instructions: Acute Low Back Pain (GEN) Additional Instructions: Your MRI today did not show cauda Equina syndrome. You do have chronic degenerative changes and stenosis disease in your lower back. Dr. Olson is aware of your testing today and will follow up with you for your diarrhea. You will need to call Dr. Mac to schedule follow up with your back pain. Return as needed. Problem Qualifiers Primary Impression: Back pain Back pain location: low back pain Chronicity: acute Back pain laterality: bilateral Sciatica presence: with sciatica Sciatica laterality: bilateral sciatica Qualified Codes: M54.42 - Lumbago with sciatica, left side; M54.41 - Lumbago with sciatica, right side Additional Impression: Diarrhea Diarrhea type: unspecified type Qualified Codes: R19.7 - Diarrhea, unspecified JESÚS SAMANO V DO Jan 02, 2018 14:19
[2018-01-02] MEDS ORDERED: DIAZEPAM 5 MG TAB PO ONE (14:55)
[2018-01-02 15:00] LABS: PLATELET COUNT, AUTOMATED 284 K/uL (150-450)
--- NOTE | 2018-01-02 16:00 | RADIOLOGY IMAGING REPORT ---
FACILITY[place] [facility] [place]IENT NAME: Betsy Jaquez : 1940 MR: [id number] V: [id number] EXAM DATE: ORDERING PHYSICIAN: JESÚS SAMANO TECHNOLOGIST: Location: [facility] - [place] Patient: Betsy Jaquez : 1940 Visit/Account:[id number] Date of Sevice: 01/02/2018 L SPINE W/O CONTRAST Provided history: hx of fusion;bowel bladder incontinence; cauda equina Additional pertinent history: none TECHNIQUE: Multiplanar multisequence lumbar MRI was performed without intravenous contrast. COMPARISON STUDIES: MRI 04/26/17 FINDINGS: Segment numbering: Lumbosacral junction at L5-S1. No transitional segment. Extra-spinal soft tissues: Negative Alignment: There is an partial reduction of listhesis of L4-5 in the interim since prior with residua l 7 mm anterior slip. No new malalignment elsewhere. Osseous signal pattern: none Distal thoracic cord / conus / cauda equina: negative Disc Spaces: Lower T spine: Stable degeneration lower 2 thoracic discs without new herniation or significant steno sis. L1-L2: Preserved disk height with abnormal low T2 signal indicating degeneration. Moderate symmetr ic bulging disk without significant osteophyte formation and without significant central stenosis No significant foraminal stenosis. L2-L3: The disk reveals stable moderate-severe narrowing and degeneration. Moderate symmetric b ulging disk without significant osteophyte formation and without significant central stenosis. Lateralization of end-plate spurs and bilateral facet hypertrophy results in stable mild narrowing of both foramina. L3-L4: Preserved disk height with abnormal low T2 signal indicating degeneration. Moderate symm etric bulging disk without significant osteophyte formation and without significant central stenosis. Lateralization of end-plate spurs and bilateral facet hypertrophy results in stable mild narrowing of both foramina. L4-L5: Interim PLIF and placement of a disc spacer device. Improved caliber of the central canal now only mildly narrowed. Additional improved caliber of both lateral recesses particularly on the left. No new disc herniation. Both foramina remain narrowed but I think improved from prior, somewhat difficult to assess due to me tallic artifact from the screws but there is some fat visible in both foramina, more so than on the p reoperative. No obvious lateralizing herniation. L5-S1: Preserved disk height with abnormal low T2 signal indicating degeneration. Mild symmetri c bulging disk without significant osteophyte formation and without significant central stenosis. A large anteriorly pointing synovial cyst on the right appears to been drained or resected in the int erim with a much improved appearance of the lateral recess. Mild foraminal narrowing is unchanged. IMPRESSION: 1. Interim L4-5 PLIF and partial reduction of listhesis with improved caliber of the central canal an d probably also improved foramina. No new herniation at this level. 2. Interim cyst drainage or resection at right L5-S1 with much improved appearance of the lateral rec ess. 3. Otherwise stable degenerative changes per above without new moderate or high-grade stenotic diseas e. Report Dictated By: Frank Butts MD at 01/02/2018 3:47 PM Report E-Signed By: Frank Butts MD at 01/02/2018 3:57 PM WSN:[id number]
[2018-01-02 16:30] VITALS: BP 143/70
== END 2018-01-02 16:40 | disposition home or self-care (01) ==
LOC: ER 14:06
DX: M54.42 Lumbago with sciatica, left side (principal); M54.41 Lumbago with sciatica, right side; R19.7 Diarrhea, unspecified
CPT/HCPCS: 72148; 81001; 85025; 87045; 87177; 87324; 87449; 99284; A9270; 82040; 82247; 82310; 82374; 82435; 82565; 82947; 84075; 84132; 84155; 84295; 84450; 84460; 84520